=== PATIENT | female | born 1935 | race American Indian/Alaskan Native ===

== ENCOUNTER 2016-09-30 00:46 | Emergency (ER) | payer MEDICARE, MEDICAID ==
[2016-09-30 00:47] VITALS: BMI 30.7
[2016-09-30 01:10] VITALS: TEMP 97.6
--- NOTE | 2016-09-30 01:22 | ED PDOC ---
Arrival/HPI <Love Bansal - Last Filed: 09/30/16 03:55> <Buzz Grove - Last Filed: 09/30/16 04:40> - General Chief Complaint: GI Problem Time Seen by Provider: 09/30/16 00:53 - History of Present Illness Narrative History of Present Illness (Text): 09/30/16 01:18 81 y/o non-verbal F BIBA from residential for evaluation of abd distension. Pt has PEG tube and indwelling ho catheter. Pt given MoM at residential. 1BM upon arrival in ED. 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 - HEENT Hx HEENT Disorder: No (g tube) Hx Difficulty Chewing: Yes - Renal Hx Renal Disorder: No - Endocrine/Metabolic Hx Diabetes Mellitus Type 2: Yes - Hematological/Oncological Hx Blood Transfusions: (UNKNOWN) - Integumentary Hx Dermatological Disorder: No Other/Comment: both heels and feet dry skin, tongue coated - Musculoskeletal/Rheumatological Hx Musculoskeletal Disorders: Yes Hx Unsteady Gait: Yes Other/Comment: bedbound - Gastrointestinal Hx Gastrointestinal Disorders: Yes (dysphagia/g tube) Hx Gastroesophageal Reflux: Yes - Genitourinary/Gynecological Hx Genitourinary Disorders: Yes (incontinent, over active bladder) Hx Incontinence: Yes Hx Urinary Tract Infection: Yes Other/Comment: +ho catheter - Psychiatric Hx Emotional Abuse: No Hx Physical Abuse: No Hx Substance Use: No - Surgical History Other/Comment: gtube placement - Anesthesia Hx Anesthesia: Yes Hx Anesthesia Reactions: No Hx Malignant Hyperthermia: No - Suicidal Assessment Feels Threatened In Home Enviroment: No <Love Bansal - Last Filed: 09/30/16 03:55> Family/Social History Family/Social History: No Known Family HX Smoking Status: Unknown If Ever Smoked Hx Alcohol Use: No Hx Substance Use: No Hx Substance Use Treatment: No <oLve Bansal - Last Filed: 09/30/16 03:55> Allergies/Home Meds <Love Bansal - Last Filed: 09/30/16 03:55> <PerfectoBuzz - Last Filed: 09/30/16 04:40> Allergies/Adverse Reactions: Allergies No Known Allergies Allergy (Verified 06/21/12 19:21) Home Medications: Home Meds Medication Instructions Recorded Confirmed Acetaminophen [Tylenol 325mg tab] 2 tab GT Q4H PRN 09/30/16 09/30/16 Albuterol/Ipratropium [Duoneb 3 1 vial IH Q6H 09/30/16 09/30/16 mg/0.5 mg (3 ml) UD] Amino Acids/Protein Hydrolys 30 ml GT DAILY 09/30/16 09/30/16 [Prosource No Carb Protein Liq] Ascorbic Acid [Vitamin C] 500 mg GT BID 09/30/16 09/30/16 Atorvastatin [Lipitor] 1 tab GT HS 09/30/16 09/30/16 Banana Flakes/Tos [Banatrol Plus 1 packet GT BID 09/30/16 09/30/16 Powder Packet] Ergocalciferol [Drisdol 50,000 50,000 iu GT Q7D 09/30/16 09/30/16 Intl Units Cap] Esomeprazole Magnesium [Nexium] 20 mg GT DAILY 09/30/16 09/30/16 Furosemide [Lasix] 1 tab GT DAILY 09/30/16 09/30/16 Insulin Aspart, Recombinant 1 unit SQ Q6H 09/30/16 09/30/16 [Novolog] Insulin Human Isophane (NPH) 15 unit SQ QID 09/30/16 09/30/16 [Novolin N] Magnesium Hydroxide [Milk Of 30 ml GT PRN PRN 09/30/16 09/30/16 Magnesia] Memantine [Namenda] 1 tab GT DAILY 09/30/16 09/30/16 Metoclopramide [Reglan] 1 tab GT Q6H 09/30/16 09/30/16 Metoprolol Tartrate [Lopressor] 1 tab GT Q6H 09/30/16 09/30/16 Multivit-Minerals/Ferrous Fum 5 ml GT DAILY 09/30/16 09/30/16 [Multivitamin Liquid] Oxybutynin [Ditropan Oral Syrup] 5 ml GT DAILY 09/30/16 09/30/16 hydrALAZINE [Apresoline] 100 mg GT TID 09/30/16 09/30/16 Review of Systems - Review of Systems Systems not reviewed;Unavailable: Dementia <Love Bansal - Last Filed: 09/30/16 03:55> Physical Exam Vital Signs Reviewed: Yes Temperature: Afebrile Blood Pressure: Hypertensive Pulse: Regular Respiratory Rate: Normal Appearance: Positive for: Non-Toxic Pain Distress: None Mental Status: Positive for: Alert and Oriented X 3 - Systems Exam Head: Present: Atraumatic, Normocephalic Pupils: Present: PERRL Conjunctiva: Present: Injected Mouth: Present: Moist Mucous Membranes Respiratory/Chest: Present: Clear to Auscultation, Good Air Exchange. No: Respiratory Distress, Accessory Muscle Use Cardiovascular: Present: Regular Rate and Rhythm, Normal S1, S2. No: Murmurs Abdomen: Present: Distention, Normal Bowel Sounds, Other (PEG; dressing c/d/i). No: Tenderness, Peritoneal Signs, Rebound, Guarding Genitourinary/Pelvic Exam: Present: Other (ho) Upper Extremity: Present: Normal Inspection Lower Extremity: Present: Normal Inspection Neurological: Present: Other (unresponsive to verbal or painful stimuli). No: GCS=15 Skin: Present: Warm, Dry, Normal Color Psychiatric: Present: Other (non-verbal). No: Alert <Love Bansal - Last Filed: 09/30/16 03:55> Medical Decision Making - Lab Interpretations I have reviewed the lab results: Yes - RAD Interpretation Optical Model Maker And Tester: ED Physician (CXR no active diease), Radiologist - EKG Interpretation Interpreted by ED Physician: Yes Type: 12 lead EKG <Love Bansal - Last Filed: 09/30/16 03:55> - Lab Interpretations I have reviewed the lab results: Yes - RAD Interpretation Optical Model Maker And Tester: ED Physician, Radiologist - EKG Interpretation Interpreted by ED Physician: Yes Type: 12 lead EKG <Buzz Grove - Last Filed: 09/30/16 04:40> ED Course and Treatment: 09/30/16 01:26 81 y/o non-verbal F w/ abd distension - CBC, CMP, Lipase - FOB - CT A/P dry - CXR - EKG 09/30/16 03:55 Pt had BM in ED. Primary agrees w/ transferring pt back to residential. (Love Bansal) Impression: Pt seen and evaluated with resident. Pt, whose past medical history includes PEG tube, hypertension, CVA, and chronic Ho catheter, presented sent from residential for abdominal distention. Pt is non-verbal and unable to provide further history. Aware and agree with HPI, clinical findings, plan, and management. Plan: -- CT Abdomen and Pelvis -- EKG -- CXR -- Labs, lipase, VBG -- Reassess and disposition Reviewed EKG, sinus tachycardia at 103 bpm. Occasional PAC. LAD. Non-specific ST /T wave changes. 09/30/16 03:[address] Campos, who is aware and agrees with plan. States pt is stable for discharge. (Buzz Grove) - Lab Interpretations Lab Results: 09/30/16 01:20 09/30/16 01:20 Lab Results 09/30/16 01:58: pO2 50, VBG pH 7.38, VBG pCO2 52.0, VBG HCO3 30.8 H, VBG Total CO2 32.4 H, VBG O2 Sat (Calc) 88.7 H, VBG Base Excess 4.8 H, VBG Potassium 3.8, Glucose 253 H, Lactate 1.3, FiO2 21.0, Sodium 139.0, Chloride 105.0, Venous Blood Potassium 3.8 09/30/16 01:20: WBC 6.0, RBC 3.52, Hgb 9.2 L, Hct 26.9 L, MCV 76.4 L, MCH 26.1, MCHC 34.2, RDW 16.3 H, Plt Count 194, MPV 10.8 09/30/16 01:20: Sodium 136, Potassium 3.7, Chloride 98, Carbon Dioxide 28, Anion Gap 14, BUN 39 H, Creatinine 1.2, Est GFR ( Amer) 52, Est GFR (Non- Af Amer) 43, Random Glucose 251 H, Calcium 8.8, Total Bilirubin 0.4, AST 18, ALT 26, Alkaline Phosphatase 95, Total Protein 7.3, Albumin 3.7, Globulin 3.6, Albumin/Globulin Ratio 1.0 L, Lipase 128 09/30/16 01:20: PT 10.8, INR 1.00, APTT 28.9 - RAD Interpretation Narrative RAD Interpretations (Text): 09/30/16 03:03 CT A/P FINDINGS: Artifact from the patient's arms. Elevation of the right hemidiaphragm. There is bibasilar atelectasis. Hyperdensity within the gallbladder either sludge or stones. No pericholecystic inflammation identified. The liver, spleen, and pancreas appear grossly normal on this non-contrast study. There is mild bilateral perinephric stranding. No hydronephrosis. No obstructing calculi.There is a non obstructing right renal calculi. A catheter with intraluminal balloon. The colon is distended with stool consistent with constipation. The distal sigmoid- rectum are dilated with stool to the point of fecal impaction and measure 8.5 cm in diameter. Ho catheter. Diastasis of the symphysis pubis is noted. Extensive vascular calcifications. IMPRESSION: impaction of the distal sigmoid - rectum. 09/30/16 03:04 CXR no active disease (Love Bansal) Radiology Orders: 09/30/16 01:13 CHEST PORTABLE [RAD] Stat 09/30/16 01:21 ABD & PELVIS W/O PO OR IV CONT [CT] Stat - EKG Interpretation EKG Interpretation (Text): 09/30/16 03:05 sinus tach, HR 103, L axis deviation (Love Bansal) - PA / WAREHOUSE SPECIALIST / Resident Statement / has reviewed & agrees with the documentation as recorded. / has examined the patient and agrees with the treatment plan. <Buzz Grove - Last Filed: 09/30/16 04:40> Disposition/Present on Arrival - Present on Arrival Any Indicators Present on Arrival: Yes History of DVT/PE: No History of Uncontrolled Diabetes: No Urinary Catheter: Yes History of Decub. Ulcer: No History Surgical Site Infection Following: None - Disposition Have Diagnosis and Disposition been Completed?: Yes Disposition Time: 03:57 <Love Bansal - Last Filed: 09/30/16 03:55> <Buzz [place] - Last Filed: 09/30/16 04:40> - Disposition Diagnosis: Abdominal distension Disposition: TRANSF TO [facility] Patient Problems: Current Active Problems Problem Status Onset Abdominal distension Acute Condition: STABLE Additional Instructions: continue MoM for constipation and abd distension
[2016-09-30 01:43] LABS: HEMATOCRIT 26.9 % (36.0-48.0); MEAN CELL VOLUME 76.4 fL (80.0-105.0); MEAN CORPUSCULAR HEMOGLOBIN 26.1 pg (25.0-35.0); MEAN CORPUSCULAR HGB CONC 34.2 g/dl (31.0-37.0); MEAN PLATELET VOLUME 10.8 fl (7.0-11.0); RED CELL DISTRIBUTION WIDTH 16.3 % (11.5-14.5)
[2016-09-30 01:51] LABS: BILIRUBIN,TOTAL 0.4 mg/dL (0.2-1.3); CALCIUM 8.8 mg/dL (8.4-10.5); POTASSIUM 3.7 mmol/L (3.6-5.0); TOTAL PROTEIN 7.3 g/dL (5.8-8.3)
[2016-09-30 01:53] LABS: PARTIAL THROMBOPLASTIN TIME 28.9 Seconds (23.7-30.8)
[2016-09-30 02:29] LABS: VENOUS BLOOD GAS BASE EXCESS 4.8 mmol/L (0.0-2.0); VENOUS BLOOD PH 7.38 (7.32-7.43)
--- NOTE | 2016-09-30 02:54 | CT ---
EXAM: CT Abdomen and Pelvis Without Intravenous Contrast CLINICAL HISTORY: 81 years old, female; Signs and symptoms; Bloating; Additional info: Distension TECHNIQUE: Axial computed tomography images of the abdomen and pelvis without intravenous contrast. This CT exam was performed using one or more of the following dose reduction techniques: automated exposure control, adjustment of the mA and/or kV according to patient size, and/or use of iterative reconstruction technique. Coronal and sagittal reformatted images were created and reviewed. EXAM DATE/TIME: 09/30/2016 1:21 AM COMPARISON: No relevant prior studies available. FINDINGS: Artifact from the patient's arms. Elevation of the right hemidiaphragm. There is bibasilar atelectasis. Hyperdensity within the gallbladder either sludge or stones. No pericholecystic inflammation identified. The liver, spleen, and pancreas appear grossly normal on this non-contrast study. There is mild bilateral perinephric stranding. No hydronephrosis. No obstructing calculi.There is a non obstructing right renal calculi. A catheter with intraluminal balloon. The colon is distended with stool consistent with constipation. The distal sigmoid- rectum are dilated with stool to the point of fecal impaction and measure 8.5 cm in diameter. Barr[place] catheter. Diastasis of the symphysis pubis is noted. Extensive vascular calcifications. IMPRESSION: impaction of the distal sigmoid - rectum.
[2016-09-30 03:41] VITALS: RESP 18
[2016-09-30 05:20] VITALS: BP 154/90; PULSE 88; O2SAT 99
--- NOTE | 2016-09-30 09:11 | RAD ---
HISTORY: Abdominal distention COMPARISON: 02/21/2014. FINDINGS: LUNGS: The lungs are clear. PLEURA: No significant pleural effusion identified, no pneumothorax apparent. CARDIOVASCULAR: The heart is normal in size. Atherosclerotic aortic arch calcifications are present. OSSEOUS STRUCTURES: No significant abnormalities. VISUALIZED UPPER ABDOMEN: Normal. OTHER FINDINGS: None. IMPRESSION: No acute findings.
--- NOTE | 2016-09-30 14:49 | CARD ---
APPROVED REPORT EKG Measurement Heart [id number] <Conclusion> Sinus tachycardia with premature supraventricular complexes Left axis deviation/LAHB PRWP V 1 - 6 STTW changes c/w ischemia
== END 2016-09-30 05:30 ==
LOC: ED 00:46
DX: R14.0 Abdominal distension (gaseous) (principal); I10 Essential (primary) hypertension; K21.9 Gastro-esophageal reflux disease without esophagitis; Z74.01 Bed confinement status; Z93.1 Gastrostomy status

== ENCOUNTER 2017-04-16 06:29 | Day surgery (SDC) | payer MEDICARE, MEDICAID ==
[2017-04-16 06:30] VITALS: BMI 29.7
[2017-04-16 07:00] VITALS: BP 161/91; PULSE 75; RESP 17; TEMP 98.6; O2SAT 100
[2017-04-16] MEDS ORDERED: Sodium Chloride 0.9% 1,000 ML IV SCH ×2 (07:30→09:15)
[2017-04-16 08:03] LABS: BASO # 0.02 K/mm3 (0.0-2.0); BASO % 0.4 % (0.0-3.0); EOS # 0.2 (0.0-0.7); EOS % 3.7 % (1.5-5.0); GRAN # 3.38 (1.4-6.5); GRAN % 62.3 % (50.0-68.0); HEMATOCRIT 29.6 % (36.0-48.0); LYMPH # 1.3 (1.2-3.4); LYMPH % 24.2 % (22.0-35.0); MEAN CELL VOLUME 78.5 fl (80.0-105.0); MEAN CORPUSCULAR HEMOGLOBIN 26.5 pg (25.0-35.0); MEAN CORPUSCULAR HGB CONC 33.8 g/dl (31.0-37.0); MEAN PLATELET VOLUME 12.1 fl (7.0-11.0); MONO # 0.5 (0.1-0.6); MONO % 9.4 % (1.0-6.0); RED CELL DISTRIBUTION WIDTH 16.7 % (11.5-14.5); WHITE BLOOD COUNT 5.4 10^3/ul (4.5-11.0)
[2017-04-16 08:14] LABS: INR 1.01 (0.93-1.08); PARTIAL THROMBOPLASTIN TIME 30.1 Seconds (25.1-36.5)
--- NOTE | 2017-04-16 08:18 | ED PDOC ---
Arrival/HPI - General Chief Complaint: GI Problem Time Seen by Provider: 04/16/17 07:21 Historian: Long Term - History of Present Illness Narrative History of Present Illness (Text): 04/16/17 08:15 Patient is an 81 yo female sent from senior living for "PEG tube replacement". Reportedly patient had PEG tube dislodged although unspecified time. Patient was scheduled for same day surgery procedure with Dr. Bliss, she was transported to ED. No reported history of change in her baseline mental status, no reported fevers , no reported vomiting or shortness of breath. Past Medical History - Past History Past History: No Previous - Infectious Disease Hx of Infectious Diseases: None - Tetanus Immunization Tetanus Immunization: Unknown - Cardiac Hx Pacemaker: No - Pulmonary Hx Pneumonia: Yes - Neurological Hx Paralysis: Yes (S/P SEVERAL STROKES) - HEENT Hx HEENT Disorder: No (g tube) Hx Difficulty Chewing: Yes - Renal Hx Renal Disorder: No - Endocrine/Metabolic Hx Diabetes Mellitus Type 2: Yes - Hematological/Oncological Hx Blood Transfusions: (UNKNOWN) - Integumentary Hx Dermatological Disorder: No Other/Comment: both heels and feet dry skin, tongue coated - Musculoskeletal/Rheumatological Hx Musculoskeletal Disorders: Yes - Gastrointestinal Hx Gastrointestinal Disorders: Yes (dysphagia/g tube) Hx Gastroesophageal Reflux: Yes - Genitourinary/Gynecological Hx Genitourinary Disorders: Yes (incontinent, over active bladder) Hx Incontinence: Yes Hx Urinary Tract Infection: Yes Other/Comment: +ho catheter - Psychiatric Hx Emotional Abuse: No Hx Physical Abuse: No Hx Substance Use: No - Surgical History Other/Comment: gtube placement - Anesthesia Hx Anesthesia Reactions: No Hx Malignant Hyperthermia: No - Suicidal Assessment Feels Threatened In Home Enviroment: No Family/Social History Family/Social History: Unknown Family HX Smoking Status: Unknown If Ever Smoked Hx Alcohol Use: No Hx Substance Use: No Hx Substance Use Treatment: No Allergies/Home Meds Allergies/Adverse Reactions: Allergies No Known Allergies Allergy (Verified 06/21/12 19:21) Home Medications: Home Meds Medication Instructions Recorded Confirmed Acetaminophen [Tylenol 325mg tab] 2 tab GT Q4H PRN 09/30/16 04/16/17 Ascorbic Acid [Vitamin C] 500 mg GT BID 09/30/16 04/16/17 Atorvastatin [Lipitor] 1 tab GT HS 09/30/16 04/16/17 Banana Flakes/Tos [Banatrol Plus 1 packet GT BID 09/30/16 04/16/17 Powder Packet] Furosemide [Lasix] 40 tab GT DAILY 09/30/16 04/16/17 Magnesium Hydroxide [Milk Of 30 ml GT PRN PRN 09/30/16 04/16/17 Magnesia] Memantine [Namenda] 1 tab GT DAILY 09/30/16 04/16/17 Multivit-Minerals/Ferrous Fum 5 ml GT DAILY 09/30/16 04/16/17 [Multivitamin Liquid] Oxybutynin [Ditropan Oral Syrup] 5 ml GT TID 09/30/16 04/16/17 hydrALAZINE [Apresoline] 100 mg GT TID 09/30/16 04/16/17 Acetylcysteine 20% [Acetylcysteine 4 ml INH Q12H 04/15/17 04/16/17 20%] Albuterol/Ipratropium [Duoneb 3 3 ml INH Q6H 04/15/17 04/16/17 mg/0.5 mg (3 ml) UD] Cranberry Xt/Multivitamin [Utymax 30 ml GT DAILY 04/15/17 04/16/17 Powder Pack] Ergocalciferol [Drisdol 50,000 50,000 units GT Q7D 04/15/17 04/16/17 Intl Units Cap] Esomeprazole Magnesium [Nexium] 20 mg GT DAILY 04/15/17 04/16/17 Insulin Aspart Prot/Insuln Asp 15 units SC Q12H 04/15/17 04/16/17 [Novolog Mix 70-30 Vial] Insulin Human Regular [Novolin R] See Protocol SC Q6H 04/15/17 04/16/17 Metoclopramide [Reglan] 5 mg GT Q6H 04/15/17 04/16/17 Metoprolol Tartrate [Lopressor] 50 mg GT Q6H 04/15/17 04/16/17 Mupirocin 2% Ointment [Bactroban 1 appl TOP DAILY 04/15/17 04/16/17 Ointment] Vitamin A/D [Vitamin A&D] 1 appl TOP Q8H 04/15/17 04/16/17 Review of Systems - Review of Systems Systems not reviewed;Unavailable: Dementia Physical Exam Vital Signs Reviewed: Yes Vital Signs Temp Pulse Resp BP Pulse Ox 04/16/17 06:32 98.6 F 75 17 161/91 H 100 Temperature: Afebrile Blood Pressure: Hypertensive Respiratory Rate: Normal Appearance: Positive for: Non-Toxic Mental Status: Positive for: Confused - Systems Exam Head: Present: Atraumatic Mouth: Present: Dry Neck: No: Meningeal Signs Respiratory/Chest: Present: Clear to Auscultation. No: Respiratory Distress Cardiovascular: Present: Regular Rate and Rhythm, Murmurs Abdomen: Present: Distention, Other (there is ho in feeding tube site, no pus or bleeding or drainage noted, no surrounding crepitus or edema). No: Tenderness Rectal: No: Gross Blood Upper Extremity: No: Cyanosis Neurological: Present: Other (at baseline as reported, no acute focal deficits reported, contractures noted) Skin: Present: Warm Psychiatric: No: Normal Insight, Normal Concentration Medical Decision Making ED Course and Treatment: 04/16/17 08:18 Patient received in ED from senior living for "PEG TUBE PLACEMENT". Patient unable to provide history due to dementia. Patient is not in respiratory distress, no pain noted, at baseline as per reports. Communicated with GI team who is expecting patient at same day surgery, patient will be taken to same day surgery for procedure with margi Driscoll as per GI. - Lab Interpretations Lab Results: 04/16/17 07:45 04/16/17 07:45 Lab Results 04/16/17 07:45: Sodium 139, Potassium 3.5 L, Chloride 96 L, Carbon Dioxide 31, Anion Gap 15, BUN 80 H, Creatinine 1.5 H, Est GFR ( Amer) 40, Est GFR ( Non-Af Amer) 33, Random Glucose 204 H, Calcium 8.9, Total Bilirubin 0.4, AST 22 , ALT 23, Alkaline Phosphatase 81, Total Protein 7.4, Albumin 3.8, Globulin 3.6 , Albumin/Globulin Ratio 1.1 04/16/17 07:45: PT 11.1, INR 1.01, APTT 30.1 04/16/17 07:45: WBC 5.4, RBC 3.77, Hgb 10.0 L, Hct 29.6 L, MCV 78.5 L, MCH 26.5 , MCHC 33.8, RDW 16.7 H, Plt Count 171, MPV 12.1 H, Gran % 62.3, Lymph % (Auto) 24.2, [place] % (Auto) 9.4 H, Eos % (Auto) 3.7, Baso % (Auto) 0.4, Gran # 3.38, Lymph # 1.3, [place] # 0.5, Eos # 0.2, Baso # 0.02 04/16/17 07:20: POC Glucose (mg/dL) 208 H - Medication Orders Current Medication Orders: Sodium Chloride (Sodium Chloride 0.9%) 1,000 mls @ 100 mls/hr IV .Q10H [facility] Last Admin: 04/16/17 07:50 Dose: 100 mls/hr eMAR Start Stop Document 04/16/17 07:50 MR (Rec: 04/16/17 07:50 MR [id number]) Intravenous Solution Start Date 04/16/17 Start Time 07:50 Sodium Chloride (Sodium Chloride 0.9%) 1,000 mls @ 100 mls/hr IV .Q10H [facility] Disposition/Present on Arrival - Present on Arrival Any Indicators Present on Arrival: Yes History of DVT/PE: No History of Uncontrolled Diabetes: No Urinary Catheter: Yes History of Decub. Ulcer: No History Surgical Site Infection Following: None - Disposition Have Diagnosis and Disposition been Completed?: Yes Diagnosis: Feeding tube dysfunction Disposition: HOSPITALIZED Disposition Time: 08:19 Patient Plan: Admission Patient Problems: Current Active Problems Problem Status Onset Feeding tube dysfunction Acute Condition: FAIR
[2017-04-16 08:26] LABS: ALB/GLOB RATIO 1.1 (1.1-1.8); BILIRUBIN,TOTAL 0.4 mg/dL (0.2-1.3); CALCIUM 8.9 mg/dL (8.4-10.5); POTASSIUM 3.5 mmol/L (3.6-5.0); TOTAL PROTEIN 7.4 g/dL (5.8-8.3)
== END 2017-04-23 15:03 ==
LOC: ED 06:29 → SDS 08:41
PROVIDERS: ATTEND Specialist
DX: K94.23 Gastrostomy malfunction (principal); Y83.3 Surgical operation with formation of external stoma as the cause of abnormal reaction of the patient, or of later complication, without mention of misadventure at the time of the procedure; E11.9 Type 2 diabetes mellitus without complications; N32.81 Overactive bladder; Z79.4 Long term (current) use of insulin; K21.9 Gastro-esophageal reflux disease without esophagitis; Z87.440 Personal history of urinary (tract) infections; R32 Unspecified urinary incontinence; F03.90 Unspecified dementia, unspecified severity, without behavioral disturbance, psychotic disturbance, mood disturbance, and anxiety; I69.369 Other paralytic syndrome following cerebral infarction affecting unspecified side
CPT/HCPCS: 80053; 82948; 85025; 85610; 85730; 99283; J7040

== ENCOUNTER 2017-04-16 08:09 | Day surgery (SDC) | payer MEDICARE, MEDICAID ==
[2017-04-15 09:40] VITALS: BMI 29.7
[2017-04-16] MEDS ORDERED: Etomidate 20 mg/10ml Inj IV ONE (08:42)
[2017-04-16 09:31] VITALS: O2SAT 100
[2017-04-16 10:25] VITALS: BP 116/57; PULSE 85; RESP 16; TEMP 97.8
== END 2017-04-16 12:45 ==
LOC: ENDO 08:09
PROVIDERS: ATTEND Specialist
DX: K94.23 Gastrostomy malfunction (principal); Y83.3 Surgical operation with formation of external stoma as the cause of abnormal reaction of the patient, or of later complication, without mention of misadventure at the time of the procedure; E11.9 Type 2 diabetes mellitus without complications; I10 Essential (primary) hypertension; R13.12 Dysphagia, oropharyngeal phase; K21.9 Gastro-esophageal reflux disease without esophagitis; Z86.73 Personal history of transient ischemic attack (TIA), and cerebral infarction without residual deficits

== ENCOUNTER 2017-11-05 15:35 | Inpatient (IN) | payer MEDICARE, MEDICAID ==
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
--- NOTE | 2017-11-05 17:29 | RAD ---
Date of service: 11/05/2017 HISTORY: anemia admission COMPARISON: Chest radiograph dated 09/30/2016. FINDINGS: LUNGS: Pulmonary vascular congestion/edema. Left basilar atelectasis. PLEURA: Small left pleural effusion. No pneumothorax apparent. CARDIOVASCULAR: Atherosclerotic aortic calcifications. Cardiomediastinal silhouette stably prominent. Heavy mitral annular calcification redemonstrated. OSSEOUS STRUCTURES: Unchanged. VISUALIZED UPPER ABDOMEN: Normal. OTHER FINDINGS: None. IMPRESSION: Pulmonary vascular congestion/ edema with small left pleural effusion and associated atelectasis.
[2017-11-05 17:45] LABS: VENOUS BLOOD GAS BASE EXCESS 2.7 mmol/L (0.0-2.0); VENOUS BLOOD GAS PO2 78 mm/Hg (30-55); VENOUS BLOOD PH 7.41 (7.32-7.43)
[2017-11-05 17:45] LABS: BASO # 0.02 K/mm3 (0.0-2.0); BASO % 0.2 % (0.0-3.0); EOS # 0.1 (0.0-0.7); EOS % 0.5 % (1.5-5.0); GRAN # 9.87 (1.4-6.5); GRAN % 81.4 % (50.0-68.0); HEMOGLOBIN 9.1 g/dL (12.0-16.0); LYMPH # 1.2 (1.2-3.4); MEAN CORPUSCULAR HEMOGLOBIN 23.6 pg (25.0-35.0); MEAN CORPUSCULAR HGB CONC 32.4 g/dl (31.0-37.0); MEAN PLATELET VOLUME 10.6 fl (7.0-11.0); MONO % 7.9 % (1.0-6.0); RBC 3.85 10^6/uL (3.5-6.1); RED CELL DISTRIBUTION WIDTH 21.5 % (11.5-14.5); WHITE BLOOD COUNT 12.1 10^3/ul (4.5-11.0)
[2017-11-05 17:56] LABS: INR 1.07 (0.93-1.08); PARTIAL THROMBOPLASTIN TIME 31.3 Seconds (25.1-36.5); PROTHROMBIN TIME 12.2 SECONDS (9.4-12.5)
[2017-11-05 19:13] LABS: URINE BILIRUBIN NEGATIVE (NEGATIVE); URINE BLOOD LARGE (NEGATIVE); URINE GLUCOSE (UA) 100 mg/dL (NEGATIVE); URINE LEUKOCYTE ESTERASE TRACE Leu/uL (NEGATIVE); URINE PROTEIN >=300 mg/dL (<30 mg/dL); URINE UROBILINOGEN 0.2 E.U./dL (<1 E.U./dL)
[2017-11-05 19:13] LABS: ALB/GLOB RATIO 0.8 (1.1-1.8); ALBUMIN 3.1 g/dL (3.0-4.8); CALCIUM 8.1 mg/dL (8.4-10.5)
[2017-11-05 19:25] LABS: URINE APPEARANCE SL CLOUDY (CLEAR); URINE COLOR YELLOW (YELLOW)
[2017-11-05 19:32] LABS: URINE BACTERIA MANY (NEG); URINE RBC TNTC /hpf (0-2); URINE WBC 25 - 30 /hpf (0-6)
--- NOTE | 2017-11-05 19:54 | CARD ---
APPROVED REPORT Date of service: 11/05/2017 EKG Measurement Heart [id number] <Conclusion> Sinus rhythm with premature supraventricular complexes Left axis deviation Right bundle branch block Abnormal ECG
--- NOTE | 2017-11-05 20:16 | ED PDOC ---
Physical Exam Vital Signs Reviewed: Yes Vital Signs Temp Pulse Resp BP Pulse Ox 11/05/17 19:39 98 H 18 171/98 H 95 11/05/17 19:16 100 H 17 168/86 H 95 11/05/17 17:49 103 H 17 139/90 96 11/05/17 15:36 98.0 F 92 H 16 141/93 H 96 Temperature: Afebrile Blood Pressure: Normal Pulse: Regular Respiratory Rate: Normal Appearance: Positive for: Well-Appearing, Non-Toxic, Comfortable Pain Distress: None Mental Status: Positive for: Alert and Oriented X 3 Finger Stick Blood Glucose: 222 Medical Decision Making ED Course and Treatment: 11/05/17 19:00 Endorsed to me by Dr. Morales. Pending labs and UA results, and later to reassess. Patient had been transferred from residential for evaluation of low hemoglobin of 7.5. There are no reports of any bleeding. 11/05/17 21:[address] Campos, who is aware and agrees with plan. Accepts pt in to his service. Pt will go to [facility] observation for UTI and dephydration. - Lab Interpretations Lab Results: 11/05/17 17:30 11/05/17 18:46 Lab Results 11/05/17 19:17: Blood Type A POSITIVE, Antibody Screen Negative, BBK History Checked Patient has bt 11/05/17 18:46: Sodium 134, Chloride 95 L, Potassium 4.2, Carbon Dioxide 26, Anion Gap 16, BUN 62 H, Creatinine 1.4 H, Est GFR ( Amer) 43, Est GFR ( Non-Af Amer) 36, Random Glucose 217 H, Calcium 8.1 L, Total Bilirubin 0.4, AST 25, ALT 13, Alkaline Phosphatase 100, Total Protein 7.0, Albumin 3.1, Globulin 3.9, Albumin/Globulin Ratio 0.8 L 11/05/17 18:35: Urine Color Yellow, Urine Appearance Sl cloudy, Urine pH 7.0, Ur Specific [place] 1.015, Urine Protein >=300 H, Urine Glucose (UA) 100 H, Urine Ketones Trace H, Urine Blood Large H, Urine Nitrate Negative, Urine Bilirubin Negative, Urine Urobilinogen 0.2, Ur Leukocyte Esterase Trace H, Urine RBC Tntc, Urine WBC 25 - 30, Ur Epithelial Cells 6 - 8, Urine Bacteria Many 11/05/17 17:38: pO2 78 H, VBG pH 7.41, VBG pCO2 44.0, VBG HCO3 27.9, VBG Total CO2 29.3 H, VBG O2 Sat (Calc) 97.4 H, VBG Base Excess 2.7 H, VBG Potassium 8.1 H *, Sodium 127.0 L, Chloride 97.0 L, Glucose 206 H, Lactate 1.1, FiO2 21.0, Venous Blood Potassium 8.1 H* 11/05/17 17:30: PT 12.2, INR 1.07, APTT 31.3 11/05/17 17:30: WBC 12.1 H D, RBC 3.85, Hgb 9.1 L, Hct 28.1 L, MCV 73.0 L D, MCH 23.6 L, MCHC 32.4, RDW 21.5 H, Plt Count 468 H, MPV 10.6, Gran % 81.4 H, Lymph % (Auto) 10.0 L, [place] % (Auto) 7.9 H, Eos % (Auto) 0.5 L, Baso % (Auto) 0.2, Gran # 9.87 H, Lymph # (Auto) 1.2, [place] # (Auto) 1.0 H, Eos # (Auto) 0.1, Baso # (Auto) 0.02 - RAD Interpretation Radiology Orders: 11/05/17 15:58 CHEST PORTABLE [RAD] Stat - Medication Orders Current Medication Orders: Ceftriaxone Sodium (Rocephin 1 Gram Ivpb) 1 gm in 100 mls @ 200 mls/hr IV ONCE STA PRN Reason: Protocol Stop: 11/05/17 21:54 Sodium Chloride (Sodium Chloride 0.9%) 1,000 mls @ 75 mls/hr IV .[id number] - Scribe Statement The provider has reviewed the documentation as recorded by the Ketty Nieves Provider Scribe Provider Scribe Attestation: All medical record entries made by the Scribe were at my direction and personally dictated by me. I have reviewed the chart and agree that the record accurately reflects my personal performance of the history, physical exam, medical decision making, and the department course for this patient. I have also personally directed, reviewed, and agree with the discharge instructions and disposition. Disposition/Present on Arrival - Present on Arrival Any Indicators Present on Arrival: Yes History of DVT/PE: No History of Uncontrolled Diabetes: No Urinary Catheter: Yes History of Decub. Ulcer: No History Surgical Site Infection Following: None - Disposition Have Diagnosis and Disposition been Completed?: Yes Diagnosis: Abnormal laboratory test, Leukocytosis, UTI (urinary tract infection), Dehydration Disposition: HOSPITALIZED Disposition Time: 21:41 Patient Problems: Current Active Problems Problem Status Onset Abnormal laboratory test Acute Leukocytosis Acute Condition: STABLE Forms: [employer] (Ukrainian)
[2017-11-05] MEDS ORDERED: cefTRIAXone 1 gm 1 GM/100 ML BAG IV STA (21:25)
[2017-11-05] MEDS: Sodium Chloride 0.9% 1,000 ML IV SCH (22:23)
[2017-11-05] MEDS ORDERED: Ergocalciferol 50,000 Intl Units Cap GT SCH (22:45)
[2017-11-05] MEDS ORDERED: Magnesium Hydroxide Susp 30 ml UD GT PRN (23:07)
[2017-11-05] MEDS ORDERED: Dextrose 50% SYRINGE Inj (50 ml) IV PRN (23:30)
[2017-11-05] MEDS ORDERED: Meropenem 500 MG in Sodium Chloride 0.9% 50 ML IVPB SCH (23:30)
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
[2017-11-06] MEDS: Metoclopramide 5 mg/5 ml Oral Sol GT SCH ×5 (00:18→23:08)
[2017-11-06] MEDS: Acetylcysteine 20% Inhal Soln (4ml) INH SCH ×4 (01:12→19:42)
[2017-11-06] MEDS: Albuterol-Ipratrop 3 mg / 0.5 (3 ml) UD IH SCH ×4 (01:12→19:42)
[2017-11-06 02:50] VITALS: BMI 29.2
[2017-11-06] MEDS ORDERED: Insulin Reg-MEDIUM-Coverage SC SCH (07:30)
[2017-11-06] MEDS ORDERED: Dextrose 50% SYRINGE Inj (50 ml) IV PRN (07:45)
[2017-11-06 08:38] LABS: BASO # 0.02 K/mm3 (0.0-2.0); BASO % 0.2 % (0.0-3.0); EOS # 0.1 (0.0-0.7); EOS % 0.8 % (1.5-5.0); GRAN # 7.73 (1.4-6.5); GRAN % 85.1 % (50.0-68.0); HEMOGLOBIN 9.4 g/dL (12.0-16.0); LYMPH # 0.7 (1.2-3.4); LYMPH % 7.3 % (22.0-35.0); MEAN CELL VOLUME 71.7 fl (80.0-105.0); MEAN CORPUSCULAR HEMOGLOBIN 26.1 pg (25.0-35.0); MEAN CORPUSCULAR HGB CONC 36.4 g/dl (31.0-37.0); MONO # 0.6 (0.1-0.6); MONO % 6.6 % (1.0-6.0); PLATELET COUNT 310 10^3/uL (120.0-450.0); RED CELL DISTRIBUTION WIDTH 18.8 % (11.5-14.5); WHITE BLOOD COUNT 9.1 10^3/ul (4.5-11.0)
[2017-11-06] MEDS: Insulin Reg-MEDIUM-Coverage SC SCH ×2 (08:47→12:49)
[2017-11-06 08:50] LABS: ALB/GLOB RATIO 0.8 (1.1-1.8); ALBUMIN 3.2 g/dL (3.0-4.8); ALT/SGPT 15 U/L (7-56); AST/SGOT 18 U/L (14-36); BLOOD UREA NITROGEN 55 mg/dL (7-21); CALCIUM 8.1 mg/dL (8.4-10.5); GFR AFRICAN-AMERICAN 52; GFR NON-AFRICAN AMERICAN 43; HDL CHOLESTEROL 39 mg/dL (29-60)
[2017-11-06 08:58] LABS: LDL CHOLESTEROL 76 mg/dL (0-129)
[2017-11-06] MEDS ORDERED: Furosemide 40 mg/5 mL Oral Soln UD PEG SCH (10:00)
[2017-11-06] MEDS ORDERED: [UNRECOGNIZED DRUG - OTHER] GT SCH (10:00)
[2017-11-06] MEDS ORDERED: MULTIVITAMIN GT SCH (10:00)
[2017-11-06] MEDS: Cefepime 0.5 GM in Sodium Chloride 0.9% 100 ML IVPB SCH (10:10)
[2017-11-06] MEDS: OXYBUTYNIN GT SCH ×3 (10:12→17:01)
[2017-11-06] MEDS: Insulin Human NPH 1 UNITS/0.01 ML SC SCH ×3 (10:16→17:13)
[2017-11-06 11:57] LABS: FREE T4 1.81 ng/dL (0.78-2.19); T4 9.5 ug/dL (5.5-11.0)
--- NOTE | 2017-11-06 12:18 | RAD ---
Date of service: 11/06/2017 HISTORY: Abdominal distention COMPARISON: No prior. FINDINGS: BOWEL: There is large amount of stool in the colon and fecal impaction in the rectum. The bowel gas pattern is nonobstructive. No intraperitoneal air BONES: Normal. OTHER FINDINGS: None. IMPRESSION: Severe constipation and fecal impaction in the rectum. No evidence for bowel obstruction.
--- NOTE | 2017-11-06 12:32 | PN ---
DATE: 11/06/2017 SUBJECTIVE: The patient was seen lying in the bed in room 567, bed 2. The patient is responsive, but aphasic. The patient does not appear to be in any distress. Overnight, nurse's notes were reviewed. PHYSICAL EXAMINATION: VITAL SIGNS: T-max is 98.8; heart rate 98, 103, 100, 96; respirations 21; blood pressure 167/60, 183/65, 184/67; O2 sat 98%. Output is 400. HEENT: Head examination normocephalic, atraumatic. HEENT examination shows pinkish pale conjunctivae, anicteric sclerae. Dry oral mucosa. No neck rigidity. CHEST: Kyphosis. LUNGS: Shows no audible rales, crackles or wheezing. CARDIOVASCULAR: S1 and S2. Regular rhythm. Positive systolic murmur, left sternal border, right second intercostal space, left second intercostal space. ABDOMEN: Has gastrostomy tube. Positive distention noted. GENITALIA: Female. Positive Barragan catheter. EXTREMITY: Shows no pitting edema. No calf tenderness. No Homans' sign. NEUROLOGICAL: The patient is responsive, aphasic. Not able to follow any verbal commands. Cranial nerves II through XII limited. Gait examination is not tested. The patient is bedridden. MUSCULOSKELETAL: Shows a body mass index of 29. DIAGNOSTICS: On 11/06/2017, WBC 9.1, hemoglobin and hematocrit 9.4 and 26, platelets 310, granulocytes 85% segs. PT/PTT is normal. Sodium 136; potassium 3.9; chloride 101; CO2 of 25; anion gap 14; BUN down to 55 from 62; creatinine 1.2, down from 1.4; GFR 52; glucose 222; calcium 8.1; phosphorus 4.6; magnesium 2.7; iron 22; TIBC 202; iron saturation 11. Cholesterol 147, LDL 76; HDL 39. Blood type A positive. IMPRESSION AND PLAN: 1. Decreasing hemoglobin and hematocrit with severe symptomatic anemia. 2. Urinary tract infection. 3. Prerenal kidney injury. 4. Insulin-requiring diabetes mellitus with hyperglycemia. 5. Tachycardia. 6. Hypertension. 7. Leukocytosis with granulocytosis. 8. Questionable systemic inflammatory response syndrome. 9. Microcytic anemia. 10. Iron-deficiency anemia. 11. Prerenal kidney injury. 12. Iron deficiency. 13. Possible urinary tract infection with proteinuria, glycosuria, microscopic hematuria, pyuria, bacteriuria. 14. Cardiomegaly. 15. Mitral annular calcification. 16. Right bundle-branch block. 17. Aphasia. 18. Feeding dysfunction with gastrostomy tube placement. 19. Possible functional quadriplegia with severe gait dysfunction and bedridden status. 20. Left axis deviation. 21. Diabetic gastroparesis. 22. Hypovitaminosis D. 23. Dyslipidemia. 24. Dementia. 25. History of cerebrovascular infarct. Plan at this time the patient is admitted to [facility]. We finally found the POLST on this patient. The patient is a DNR/DNI, which will be ordered in the [facility]. We are awaiting further diagnostic data. We have ordered an obstructive series for evaluation of abdominal distention. Awaiting further recommendation by Infectious Disease. Current medications are Mucomyst nebulizer twice a day, Drisdol 50,000 weekly, DuoNeb nebulizer every 6 hours, heparin 5000 subcu every 8, NPH 10 units at 7:00 a.m. and NPH 10 units at 5:00 p.m., regular insulin, Venofer 200 mg IV daily, Lipitor 10 mg daily, Lopressor 50 mg every 6, cefepime 500 IV every 24, Namenda 10 mg daily, oxybutynin 5 mg three times a day, Protonix 40 mg daily, Reglan 5 mg every 6 hours via the PEG, IV fluid 0.9 at 75 mL an hour, Tylenol p.r.n., ascorbic acid, Zofran 4 IV every 4 p.r.n. I have spoke to the patient's next of kin and the guardian, Michael Robledo. I have explained to him about the patient's diagnoses, treatment plan, management plan and further disposition plan. The patient will be made DNR as per the POLST. Further management as per the Infectious Disease and involvement . Dictated and electronically signed, not read. Brooks Campos MD
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
[2017-11-06] MEDS: Mupirocin 2% Ointment 15 GM TUBE TOP SCH (16:53)
[2017-11-06 18:44] LABS: FOLATE > 20.0 ng/mL
[2017-11-07] MEDS: Albuterol-Ipratrop 3 mg / 0.5 (3 ml) UD IH SCH ×4 (01:14→22:03)
[2017-11-07] MEDS: Acetylcysteine 20% Inhal Soln (4ml) INH SCH ×2 (01:15→13:08)
--- NOTE | 2017-11-07 02:46 | HP ---
ADDENDUM HISTORY OF PRESENT ILLNESS: The patient is admitted and transferred from [facility] for severely decreasing hemoglobin/hematocrit of 7. Please refer to the detailed history and physical examination done by the biomedical technician for complete details. The patient was seen and examined. Vital signs, diagnostic data, diagnostic lab and imaging studies and the consultation reviewed. IMPRESSION AND PLAN: 1. Severe symptomatic anemia. 2. Systemic inflammatory response syndrome. 3. Possible urinary tract infection. 4. Neurogenic bladder with urinary retention and indwelling Barragan catheter. 5. Hypertension. 6. Tachycardia. 7. Functional quadriplegia with bedridden status and severe deconditioning. 8. Leukocytosis with granulocytosis and thrombocytosis. 9. Normocytic anemia. 10. Insulin-requiring diabetes mellitus with hyperglycemia and hemoglobin A1c of 6.3. 11. Iron deficiency. 12. Questionable urinary tract infection with proteinuria, glycosuria, microscopic hematuria, pyuria, bacteriuria. 13. Colonic fecal retention and impaction and severe constipation. 14. Questionable left lower lobe atelectasis with pulmonary vascular congestion. 15. Small pleural effusion. 16. Mitral annular calcification and aortic calcification. 17. Right bundle-branch block with left axis deviation. 18. Prerenal kidney injury. 19. Diabetic gastroparesis. 20. Dementia. 21. Hypovitaminosis D. 22. Hyperlipidemia. 23. Sepsis. 24. Diabetic ketoacidosis. 25. Myocardial infarction. 26. Thrombocytopenia. 27. Aphasia. 28. Multiple cerebral infarct. 29. Severe gait dysfunction and bedridden status with functional quadriplegia. 30. Neurogenic bladder with indwelling Barragan catheter. 31. Feeding dysfunction with dysphagia and odynophagia with gastrostomy tube placement. 32. Questionable cystitis with urinary bladder wall thickening. 33. 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 34. Staphylococcus hemolyticus coagulase-negative bacteremia sepsis. 35. Proteus mirabilis urinary tract infection and Proteus mirabilis and Enterococcus faecalis sacral decubitus ulceration. 36. History of paroxysmal atrial fibrillation, converting to normal sinus rhythm. 37. Left lower lobe aspiration pneumonia. 38. History of cerebrovascular accident with expressive and receptive aphasia and oropharyngeal dysphagia. 39. Gastroesophageal reflux. 40. History of chronic constipation. 41. History of right anterior cerebral artery acute infarct involving the medial frontal lobe in 2012, history of carotid anterior cerebral artery stenosis. 42. History of moderate mitral annular calcification, history of aortic mitral valve calcification. 43. History of right anterior cerebral artery stenosis, history of right medial frontal lobe acute infarct. 44. Bilateral cerebral dysfunction. 45. Pulmonary interstitial changes. 46. History of diabetic ketoacidosis, history of hyperosmolar nonketotic state. 47. History of questionable myocardial infarction. 48. History of sepsis. 49. Deconditioning. 50. Uncontrolled insulin-requiring diabetes mellitus. 51. Left basal ganglia and left pontine old infarct. 52. Altered mental status and encephalopathy. 53. Moderate bilateral cerebral dysfunction. PLAN: At this time, the patient is to be admitted to [facility]. The patient has been ordered serial labs. Blood, urine cultures ordered. Infectious Disease consultation ordered. CURRENT MEDICATIONS: Mucomyst nebulizer 20% 4 ml every 12 hours, Bactroban cream to the affected area, hypoglycemia protocol ordered. Drisdol 50,000 units via the PEG, DuoNeb nebulizer every 6 hours, Fleet enema ordered. Heparin 5000 subcu every 8 hours ordered, basal and bolus insulin sliding scale coverage every 6 hours ordered. The patient is resumed on Lipitor 10 mg daily, Lopressor 50 every 6 hours. The patient was given Rocephin and meropenem in the emergency room. The patient is resumed on Namenda 10 mg daily, Ditropan 5 mg daily, Protonix 40 mg daily, Reglan 5 mg every 6 hours. The patient is on IV fluid 0.9 normal saline at 75 mL an hour, Tylenol p.r.n., Zofran 4 mg IV every 4 hours p.r.n. Aspiration precautions ordered. JOSELYN stockings, SCDs ordered. The patient's code status after reviewing the POLST, the patient is a DNR/DNI which has been ordered. At present, the patient's further management will be dependent upon the patient's clinical condition, hemodynamic status and as per the patient's response to therapeutic intervention, as per recommendation by all the physicians involved in the care of the patient. Please refer to the detailed history and physical examination by the biomedical technician for further details. Dictated and electronically signed, not read. Brooks Campos MD [facility] # [id number]
[2017-11-07] MEDS: Metoclopramide 5 mg/5 ml Oral Sol GT SCH ×4 (05:21→22:33)
[2017-11-07] MEDS: Insulin Reg-MEDIUM-Coverage SC SCH ×5 (06:20→18:02)
[2017-11-07 06:23] LABS: BASO # 0.02 K/mm3 (0.0-2.0); BASO % 0.2 % (0.0-3.0); EOS % 0.4 % (1.5-5.0); GRAN # 9.41 (1.4-6.5); GRAN % 87.6 % (50.0-68.0); HEMOGLOBIN 7.7 g/dL (12.0-16.0); LYMPH # 0.7 (1.2-3.4); LYMPH % 6.4 % (22.0-35.0); MEAN CELL VOLUME 72.2 fl (80.0-105.0); MEAN CORPUSCULAR HEMOGLOBIN 23.8 pg (25.0-35.0); MEAN CORPUSCULAR HGB CONC 32.9 g/dl (31.0-37.0); MEAN PLATELET VOLUME 9.6 fl (7.0-11.0); MONO # 0.6 (0.1-0.6); MONO % 5.4 % (1.0-6.0); RBC 3.24 10^6/uL (3.5-6.1); RED CELL DISTRIBUTION WIDTH 18.9 % (11.5-14.5); WHITE BLOOD COUNT 10.7 10^3/ul (4.5-11.0)
[2017-11-07] MEDS: Sodium Chloride 0.9% 1,000 ML IV SCH (06:54)
[2017-11-07] MEDS: Magnesium Citrate Oral SOL (300 ml) PEG ONE ×2 (06:56→08:34)
[2017-11-07 07:01] LABS: ALB/GLOB RATIO 0.8 (1.1-1.8); ALBUMIN 2.7 g/dL (3.0-4.8); CALCIUM 7.6 mg/dL (8.4-10.5)
[2017-11-07] MEDS: Insulin Human NPH 1 UNITS/0.01 ML SC SCH ×3 (08:46→18:02)
[2017-11-07] MEDS: Mupirocin 2% Ointment 15 GM TUBE TOP SCH (09:25)
[2017-11-07] MEDS: Cefepime 0.5 GM in Sodium Chloride 0.9% 100 ML IVPB SCH (09:26)
[2017-11-07] MEDS: OXYBUTYNIN GT SCH ×3 (09:27→18:04)
[2017-11-07 09:48] LABS: HEMOGLOBIN 8.6 g/dL (12.0-16.0)
--- NOTE | 2017-11-07 10:31 | CP.PCM.PN ---
Subjective - Date & Time of Evaluation Date of Evaluation: 11/07/17 Time of Evaluation: 10:14 - Subjective Subjective: Hilda Clemente, PGY2, Medicine Progress note for Dr Campos: Patient seen and examined at bedside. No acute events noted. No overt signs of bleeding. Patient remains aphasic, at baseline. ROS unobtainable as patient is aphasic at baseline. Objective - Vital Signs/Intake and Output Vital Signs (last 24 hours): Temp Pulse Resp BP Pulse Ox 98.4 F 100 H 22 156/64 H 93 L 11/07/17 06:00 11/07/17 06:00 11/07/17 06:00 11/07/17 10:01 11/07/17 06:00 Intake and Output: 11/07/17 11/07/17 06:59 18:59 Intake Total 3440 Output Total 250 Balance 3190 - Medications Medications: Current Medications Acetaminophen (Tylenol 650 Mg Supp) 650 mg RC Q6H PRN PRN Reason: TEMP>=99.5F Acetylcysteine (Acetylcysteine 20%) 4 ml INH Q12H TI Last Admin: 11/07/17 01:15 Dose: Not Given Albuterol/Ipratropium (Duoneb 3 Mg/0.5 Mg (3 Ml) Ud) 3 ml IH [id number] TI Last Admin: 11/07/17 07:23 Dose: 3 ml Ascorbic Acid (Vitamin C 500 Mg Tab) 500 mg GT BID TI Last Admin: 11/07/17 09:27 Dose: 500 mg Atorvastatin Calcium (Lipitor) 10 mg GT HS TI Last Admin: 11/06/17 23:08 Dose: 10 mg Dextrose (Dextrose 50% Inj) 0 ml IV STAT PRN; Protocol PRN Reason: Hypoglycemia Protocol Dextrose (Dextrose 50% Inj) 0 ml IV STAT PRN; Protocol PRN Reason: Hypoglycemia Protocol Diphenhydramine HCl (Benadryl) 25 mg IVP Q8H TI Stop: 11/07/17 20:31 Ergocalciferol (Drisdol 50,000 Intl Units Cap) 1 cap GT Q7D TI Last Admin: 11/06/17 00:17 Dose: 1 cap Furosemide (Lasix) 20 mg IVP Q8H TI Stop: 11/07/17 20:31 Heparin Sodium (Porcine) (Heparin) 5,000 units SC Q8 TI PRN Reason: Protocol Last Admin: 11/07/17 05:19 Dose: 5,000 units Sodium Chloride (Sodium Chloride 0.9%) 1,000 mls @ 75 mls/hr IV .[id number] [facility] Last Admin: 11/07/17 06:54 Dose: 75 mls/hr Dextrose (Dextrose 5% In Water 1000 Ml) 1,000 mls @ 0 mls/hr IV .Q0M PRN; Protocol; Per Protocol PRN Reason: Hypoglycemia Protocol Insulin Human NPH (Humulin N) 10 units SC DAILY [facility] Last Admin: 11/07/17 09:29 Dose: Not Given Insulin Human NPH (Humulin N) 10 units SC DAILY@1745 [facility] Last Admin: 11/06/17 17:13 Dose: 10 units Insulin Human Regular (Humulin R Med) 0 units SC Q6 [facility] PRN Reason: Protocol Last Admin: 11/07/17 08:48 Dose: 5 units Memantine (Namenda) 10 mg GT DAILY [facility] Last Admin: 11/07/17 09:25 Dose: 10 mg Metoclopramide HCl (Reglan) 5 mg GT Q6H [facility] Last Admin: 11/07/17 05:21 Dose: 5 mg Metoprolol Tartrate (Lopressor) 50 mg GT Q6H [facility] Last Admin: 11/07/17 10:01 Dose: 50 mg Mupirocin (Bactroban Ointment) 15 gm TOP DAILY [facility] Last Admin: 11/07/17 09:25 Dose: 1 applic Oxybutynin [Ditropan Oral Syrup] 5 Ml ( Home Med) 5 ml GT TID [facility] Last Admin: 11/07/17 09:27 Dose: Not Given Ondansetron HCl (Zofran Inj) 4 mg IVP Q4H PRN PRN Reason: Nausea/Vomiting Pantoprazole Sodium (Protonix Inj) 40 mg IVP DAILY [facility] Last Admin: 11/07/17 09:27 Dose: 40 mg Polyethylene Glycol (Miralax) 17 gm PEG BID [facility] - Labs Labs: 11/07/17 09:40 11/07/17 05:30 PT 12.2 SECONDS (9.4-12.5) 11/05/17 17:30 INR 1.07 (0.93-1.08) 11/05/17 17:30 APTT 31.3 Seconds (25.1-36.5) 11/05/17 17:30 - Constitutional Appears: Non-toxic, No Acute Distress, Older Than Stated Age, Chronically Ill - Head Exam Head Exam: ATRAUMATIC, NORMOCEPHALIC - Eye Exam Eye Exam: Normal appearance, PERRL. absent: Conjunctival injection, Nystagmus, Periorbital swelling, Scleral icterus Pupil Exam: PERRL. absent: Irregular, Miosis, Mydriatic - ENT Exam ENT Exam: Mucous Membranes Moist - Neck Exam Neck Exam: Full ROM - Respiratory Exam Respiratory Exam: Clear to Ausculation Bilateral, NORMAL BREATHING PATTERN. absent: Rales, Rhonchi, Respiratory Distress, Stridor - Cardiovascular Exam Cardiovascular Exam: RRR, +S1, +S2. absent: Murmur - GI/Abdominal Exam GI & Abdominal Exam: Soft, Normal Bowel Sounds. absent: Rigid, Tenderness, Organomegaly, Rebound - Extremities Exam Extremities Exam: Normal Inspection - Back Exam Back Exam: NORMAL INSPECTION - Neurological Exam Neurological Exam: Awake Additional comments: + decortication - Skin Skin Exam: Dry, Normal Color, Warm Assessment and Plan - Assessment and Plan (Free Text) Assessment: 82 year old female with PMH g-tube, several CVAs, HTN, HLD, DM, and GERD, admitted for UTI and leukocytosis. Today, patient's Hgb dropped, will transfuse 2 untis prbcs: Anemia: - Hgb 7.7 today, repeat Hgb 8.6 - microcytic in nature - s/p IV iron - will transfuse 2 units prbcs - FOBT negative - no overt signs of bleeding - monitor post transfusion Hgb UTI - leukocytosis resolved since admission - UA + for urine ketones, blood and trace leuk. esterase - Started on cefepime - ID consulted. appreciate recs. - New ho put in place on admission - blood and urine cultures NTD Aphasia - aspiration precautions - Acetylcysteine [address] for secretions - Duonebs 3ml q6 [address] - reglan - Home meds of Vit A and D ordered HTN: - Metoprolol 50 ml q6 - Furosemide 40 mg ordered - Hydralazine 100 mg TID DM - ISS medium - ACHS HLD - Atorvastatin 10 Prophylaxis - SCD's in place - Protonix 40 IVP Diet: feeding tube in place, Glucerna @ 60 ml/hr Case reviewed and plan agreed upon with Dr. Unique Campos.
--- NOTE | 2017-11-07 12:39 | CP.PCM.PN ---
Subjective - Date & Time of Evaluation Date of Evaluation: 11/06/17 Time of Evaluation: 10:55 - Subjective Subjective: No fevers, not in distress. Objective - Vital Signs/Intake and Output Vital Signs (last 24 hours): Temp Pulse Resp BP Pulse Ox 98 F 77 20 137/52 L 100 11/06/17 14:00 11/06/17 19:34 11/06/17 14:00 11/06/17 19:34 11/06/17 15:53 Intake and Output: 11/06/17 11/07/17 18:59 06:59 Intake Total 0 Output Total 200 Balance -200 - Medications Medications: Current Medications Acetaminophen (Tylenol 650 Mg Supp) 650 mg RC Q6H PRN PRN Reason: TEMP>=99.5F Acetylcysteine (Acetylcysteine 20%) 4 ml INH Q12H [facility] Last Admin: 11/06/17 19:42 Dose: 4 ml Albuterol/Ipratropium (Duoneb 3 Mg/0.5 Mg (3 Ml) Ud) 3 ml IH [id number] [facility] Last Admin: 11/06/17 19:42 Dose: 3 ml Ascorbic Acid (Vitamin C 500 Mg Tab) 500 mg GT BID [facility] Last Admin: 11/06/17 17:00 Dose: 500 mg Atorvastatin Calcium (Lipitor) 10 mg GT HS [facility] Last Admin: 11/06/17 00:17 Dose: 10 mg Dextrose (Dextrose 50% Inj) 0 ml IV STAT PRN; Protocol PRN Reason: Hypoglycemia Protocol Dextrose (Dextrose 50% Inj) 0 ml IV STAT PRN; Protocol PRN Reason: Hypoglycemia Protocol Ergocalciferol (Drisdol 50,000 Intl Units Cap) 1 cap GT Q7D [facility] Last Admin: 11/06/17 00:17 Dose: 1 cap Heparin Sodium (Porcine) (Heparin) 5,000 units SC Q8 TI PRN Reason: Protocol Last Admin: 11/06/17 21:53 Dose: 5,000 units Sodium Chloride (Sodium Chloride 0.9%) 1,000 mls @ 75 mls/hr IV .[id number] [facility] Last Admin: 11/05/17 22:23 Dose: 75 mls/hr Cefepime HCl 0.5 gm/ Sodium (Chloride) 100 mls @ 100 mls/hr IVPB Q24H TI PRN Reason: Protocol Last Admin: 11/06/17 10:10 Dose: 100 mls/hr Dextrose (Dextrose 5% In Water 1000 Ml) 1,000 mls @ 0 mls/hr IV .Q0M PRN; Protocol; Per Protocol PRN Reason: Hypoglycemia Protocol Insulin Human NPH (Humulin N) 10 units SC DAILY [facility] Last Admin: 11/06/17 10:16 Dose: 10 units Insulin Human NPH (Humulin N) 10 units SC DAILY@1745 [facility] Last Admin: 11/06/17 17:13 Dose: 10 units Insulin Human Regular (Humulin R Med) 0 units SC Q6 TI PRN Reason: Protocol Last Admin: 11/06/17 12:49 Dose: Not Given Memantine (Namenda) 10 mg GT DAILY [facility] Last Admin: 11/06/17 10:11 Dose: 10 mg Metoclopramide HCl (Reglan) 5 mg GT Q6H [facility] Last Admin: 11/06/17 16:51 Dose: 5 mg Metoprolol Tartrate (Lopressor) 50 mg GT Q6H [facility] Last Admin: 11/06/17 19:27 Dose: Not Given Mupirocin (Bactroban Ointment) 15 gm TOP DAILY [facility] Last Admin: 11/06/17 16:53 Dose: 1 applic Oxybutynin [Ditropan Oral Syrup] 5 Ml ( Home Med) 5 ml GT TID [facility] Last Admin: 11/06/17 17:01 Dose: Not Given Ondansetron HCl (Zofran Inj) 4 mg IVP Q4H PRN PRN Reason: Nausea/Vomiting Pantoprazole Sodium (Protonix Inj) 40 mg IVP DAILY [facility] Last Admin: 11/06/17 10:11 Dose: 40 mg - Labs Labs: PT 12.2 SECONDS (9.4-12.5) 11/05/17 17:30 INR 1.07 (0.93-1.08) 11/05/17 17:30 APTT 31.3 Seconds (25.1-36.5) 11/05/17 17:30 - Constitutional Appears: Chronically Ill - Head Exam Head Exam: NORMAL INSPECTION - Neck Exam Neck Exam: absent: Meningismus - Respiratory Exam Respiratory Exam: Decreased Breath Sounds - Cardiovascular Exam Cardiovascular Exam: +S1, +S2 - GI/Abdominal Exam GI & Abdominal Exam: Soft. absent: Tenderness Assessment and Plan - Assessment and Plan (Free Text) Plan: Assessment Systemic inflammatory response syndrome probable from acute on chronic anemia, without evidence of UTI CVA with aphasia DM S/P gastrostomy tube placement HTN dyslipidemia GERD Plan will d/c Cefepime - blood and urine cx are negative follow up anemia work up will continue to monitor clinically
[2017-11-07] MEDS: DiphenhydrAMINE 50 mg/ml Inj IVP SCH ×2 (12:47→16:52)
--- NOTE | 2017-11-07 23:33 | PN ---
DATE: 11/07/2017 SUBJECTIVE: The patient was seen in room 567, bed 2. The patient's next of kin and power of employment attorney, Michael Charles is at bedside. The patient is awake, responsive, but aphasic. Overnight nurses' notes were reviewed. The patient received Fleet enema. The patient had significant amount of bowel movement. The patient was awake, responsive. The patient as mentioned, had a large bowel movement after the Fleet enema. PHYSICAL EXAMINATION: VITAL SIGNS: T-max is 98.4-98.3; heart rate 96, 98, 80, 89, 90; blood pressure 158/72, 162/71, 145/63, 171/86, 127/47, 137/52; respiration 22, O2 sat is 98-100%. Intake/output, output is 50 mL, 200 mL and 400 mL in the last 24 hours. Intake is 3440. HEAD: Normocephalic, atraumatic. HEENT examination shows dry oral mucosa, pale conjunctivae. Anicteric sclerae. No oropharyngeal lesion. The patient is aphasic. No neck rigidity. CHEST: Kyphosis. LUNGS: Shows no crackles, rales or wheezing. CARDIOVASCULAR: S1, S2, regular rhythm. Questionable soft systolic murmur in left sternal border, right second intercostal space, left second intercostal space. ABDOMEN: Much less distended and protuberant since yesterday. Positive gastrostomy tube noted. GENITALIA: Female. Positive Barragan catheter. EXTREMITIES: Shows no pitting edema, no calf numbness, no Homans sign. NEUROLOGIC: The patient is awake, aphasic, not responsive. Lying in the bed. MUSCULOSKELETAL: Shows a body mass index of 29. DIAGNOSTICS: From 11/07/2017, WBC count is down to 10.7, hemoglobin/hematocrit dropped to 7.7/23.4 and 8.6/25.7, platelets 362. Granulocytes 87% segs. Sodium 141, potassium 3.8, chloride 104, CO2 of 23, anion gap 17, BUN 49, creatinine 1.2, GFR 52, glucose 128, 202, 244, 262, 287, 276. Calcium 7.6, phosphorus 6.1, magnesium 2.5. LFTs are normal. Albumin is 2.7. Stool occult blood negative. Microbiology urine and blood cultures all negative. The patient is typed and crossmatched. Blood type is A+. Antibody screen negative. IMPRESSION AND PLAN 1. Severe symptomatic anemia with decreasing hemoglobin/hematocrit. 2. Systemic inflammatory response syndrome with tachycardia and leukocytosis. 3. Hypertension. 4. Tachycardia. 5. Transient hypoxemia. 6. Expressive aphasia. 7. History of cerebral infarct. 8. Leukocytosis with persistent granulocytosis. 9. Microcytic anemia with decreasing hemoglobin/hematocrit 10. Acute kidney injury. 11. Prerenal kidney injury. 12. Hyperglycemia with type 1 insulin-requiring diabetes mellitus with hemoglobin A1c of 6.3. 13. Iron-deficiency anemia. 14. Hyperphosphatemia. 15. Dementia. 16. Proteinuria, glycosuria, ketonuria, microscopic hematuria, pyuria, bacteriuria 17. Severe constipation and fecal impaction in the colon and rectum. 18. Right bundle-branch and left anterior hemiblock. 19. Hypovitaminosis D. 20. Hyperlipidemia. 21. Neurogenic bladder. 22. Diabetic gastroparesis. PLAN: At this time, the patient has been ordered type and crossmatch for 2 units of PRBC. The patient has been ordered transfusion of 2 units of PRBC, each over 3 hours with premedication with Benadryl and Lasix. The patient has been ordered repeat labs for the morning. Blood transfusion consent obtained through the patient's next of kin and power of employment attorney and guardian, Michael Charles, which he consented for the blood transfusion for the patient. The patient will be continued on Mucomyst nebulizer 20% 4 ml twice a day, Bactroban cream to the affected area, Benadryl and Lasix premedications ordered prior to transfusion. The patient was given a bottle of magnesium citrate today for persistent constipation and fecal retention. The patient is on Drisdol 50,000 weekly, DuoNeb nebulizer every 6 hours, heparin 5000 subcu every 8 hours, NPH 10 units at 07:00 a.m. and NPH 10 units at 05:00 p.m. and Humulin regular medium sliding scale coverage every 6 hours. The patient received a dose of Venofer 200 mg once. The patient is on Lipitor 40 mg daily, Lopressor 50 mg every 6 hours, MiraLax 17 g twice a day, Namenda 10 mg daily, Ditropan 5 mg 3 times a day, Protonix 40 mg daily, Reglan 5 mg every 6 hours, IV fluid 0.9 normal saline at 75 mL an hour, Tylenol suppository every 6 hours p.r.n., vitamin C 500 twice a day, Zofran 4 mg IV every 4 hours p.r.n. Aspiration precautions ordered. Head of the bed at 30 degrees. Fingerstick blood sugar, out of bed, JOSELYN stockings, SCDs ordered. At present, the patient will be continued on the above therapeutic intervention. The patient's code status is DNR/DNI. The patient will be given intravenous Venofer for iron-deficiency anemia. Patient's repeat lab work will be ordered. We will await further recommendations from Infectious Disease regarding the duration of the IV antibiotic therapy. If the patient's IV antibiotics are discontinued by the Infectious Disease today or tomorrow, the patient will be considered for [facility] permitting patient's CBC and electrolytes are improved and the patient's hemoglobin has improved from today, which has been discussed at length with the patient's next of kin and guardian, Michael Charles at length and all questions concerned answered. Dictated and electronically signed, not read. Brooks Capmos MD
[2017-11-08] MEDS: Insulin Reg-MEDIUM-Coverage SC SCH ×2 (01:42→11:22)
[2017-11-08] MEDS: Albuterol-Ipratrop 3 mg / 0.5 (3 ml) UD IH SCH ×3 (02:12→13:33)
[2017-11-08] MEDS: Metoclopramide 5 mg/5 ml Oral Sol GT SCH ×2 (06:28→10:56)
[2017-11-08 06:52] LABS: BASO # 0.03 K/mm3 (0.0-2.0); BASO % 0.3 % (0.0-3.0); EOS # 0.1 (0.0-0.7); EOS % 1.4 % (1.5-5.0); GRAN # 8.16 (1.4-6.5); GRAN % 79.8 % (50.0-68.0); LYMPH # 1.3 (1.2-3.4); MEAN CELL VOLUME 74.4 fl (80.0-105.0); MEAN CORPUSCULAR HEMOGLOBIN 25.2 pg (25.0-35.0); MEAN CORPUSCULAR HGB CONC 33.8 g/dl (31.0-37.0); MEAN PLATELET VOLUME 10.2 fl (7.0-11.0); MONO # 0.6 (0.1-0.6); MONO % 5.5 % (1.0-6.0); RBC 4.37 10^6/uL (3.5-6.1); WHITE BLOOD COUNT 10.2 10^3/ul (4.5-11.0)
[2017-11-08] MEDS: Acetylcysteine 20% Inhal Soln (4ml) INH SCH ×2 (07:19→07:20)
[2017-11-08 07:24] LABS: ALB/GLOB RATIO 0.8 (1.1-1.8); ALBUMIN 3.1 g/dL (3.0-4.8); CALCIUM 7.6 mg/dL (8.4-10.5)
[2017-11-08 09:07] VITALS: RESP 20; TEMP 98.3; O2SAT 96
[2017-11-08] MEDS ORDERED: POLYETHYLENE GLYCOL 3350 17 GM/Dose PACKET PEG SCH (10:00)
[2017-11-08] MEDS: OXYBUTYNIN GT SCH (10:40)
[2017-11-08] MEDS: Insulin Human NPH 1 UNITS/0.01 ML SC SCH (10:41)
[2017-11-08] MEDS: Mupirocin 2% Ointment 15 GM TUBE TOP SCH (10:53)
[2017-11-08 11:52] LABS: GLYCOMARK(R) 4.2 mcg/mL (7.5-28.4)
[2017-11-08 12:48] VITALS: BP 156/68; PULSE 84
--- NOTE | 2017-11-08 12:53 | CP.PCM.PN ---
Subjective - Date & Time of Evaluation Date of Evaluation: 11/08/17 Time of Evaluation: 12:05 - Subjective Subjective: No fevers, not in distress, weak-looking. Objective - Vital Signs/Intake and Output Vital Signs (last 24 hours): Temp Pulse Resp BP Pulse Ox 97.9 F 99 H 18 181/60 H 98 11/07/17 22:00 11/07/17 22:26 11/07/17 22:00 11/07/17 22:26 11/07/17 22:00 Intake and Output: 11/07/17 11/08/17 18:59 06:59 Intake Total 0 Balance 0 - Medications Medications: Current Medications Acetaminophen (Tylenol 650 Mg Supp) 650 mg RC Q6H PRN PRN Reason: TEMP>=99.5F Acetylcysteine (Acetylcysteine 20%) 4 ml INH Q12H [facility] Last Admin: 11/07/17 13:08 Dose: 4 ml Albuterol/Ipratropium (Duoneb 3 Mg/0.5 Mg (3 Ml) Ud) 3 ml IH [id number] [facility] Last Admin: 11/07/17 22:03 Dose: 3 ml Ascorbic Acid (Vitamin C 500 Mg Tab) 500 mg GT BID [facility] Last Admin: 11/07/17 18:01 Dose: 500 mg Atorvastatin Calcium (Lipitor) 10 mg GT HS [facility] Last Admin: 11/07/17 22:26 Dose: 10 mg Dextrose (Dextrose 50% Inj) 0 ml IV STAT PRN; Protocol PRN Reason: Hypoglycemia Protocol Dextrose (Dextrose 50% Inj) 0 ml IV STAT PRN; Protocol PRN Reason: Hypoglycemia Protocol Ergocalciferol (Drisdol 50,000 Intl Units Cap) 1 cap GT Q7D [facility] Last Admin: 11/06/17 00:17 Dose: 1 cap Heparin Sodium (Porcine) (Heparin) 5,000 units SC Q8 TI PRN Reason: Protocol Last Admin: 11/07/17 22:27 Dose: 5,000 units Sodium Chloride (Sodium Chloride 0.9%) 1,000 mls @ 75 mls/hr IV .[id number] [facility] Last Admin: 11/07/17 06:54 Dose: 75 mls/hr Dextrose (Dextrose 5% In Water 1000 Ml) 1,000 mls @ 0 mls/hr IV .Q0M PRN; Protocol; Per Protocol PRN Reason: Hypoglycemia Protocol Iron Sucrose 200 mg/ Sodium (Chloride) 110 mls @ 110 mls/hr IVPB DAILY [facility] Stop: 11/09/17 10:59 Last Admin: 11/07/17 21:37 Dose: Not Given Insulin Human NPH (Humulin N) 10 units SC DAILY [facility] Last Admin: 11/07/17 09:29 Dose: Not Given Insulin Human NPH (Humulin N) 10 units SC DAILY@1745 [facility] Last Admin: 11/07/17 18:02 Dose: 10 units Insulin Human Regular (Humulin R Med) 0 units SC Q6 [facility] PRN Reason: Protocol Last Admin: 11/07/17 18:02 Dose: 5 units Memantine (Namenda) 10 mg GT DAILY [facility] Last Admin: 11/07/17 09:25 Dose: 10 mg Metoclopramide HCl (Reglan) 5 mg GT Q6H [facility] Last Admin: 11/07/17 22:33 Dose: 5 mg Metoprolol Tartrate (Lopressor) 50 mg GT Q6H [facility] Last Admin: 11/07/17 22:26 Dose: 50 mg Mupirocin (Bactroban Ointment) 15 gm TOP DAILY [facility] Last Admin: 11/07/17 09:25 Dose: 1 applic Oxybutynin [Ditropan Oral Syrup] 5 Ml ( Home Med) 5 ml GT TID [facility] Last Admin: 11/07/17 18:04 Dose: Not Given Ondansetron HCl (Zofran Inj) 4 mg IVP Q4H PRN PRN Reason: Nausea/Vomiting Pantoprazole Sodium (Protonix Inj) 40 mg IVP DAILY [facility] Last Admin: 11/07/17 09:27 Dose: 40 mg Polyethylene Glycol (Miralax) 17 gm PEG BID [facility] - Labs Labs: 11/07/17 09:40 11/07/17 05:30 PT 12.2 SECONDS (9.4-12.5) 11/05/17 17:30 INR 1.07 (0.93-1.08) 11/05/17 17:30 APTT 31.3 Seconds (25.1-36.5) 11/05/17 17:30 - Constitutional Appears: Chronically Ill - Head Exam Head Exam: NORMAL INSPECTION - Respiratory Exam Respiratory Exam: Decreased Breath Sounds - Cardiovascular Exam Cardiovascular Exam: +S1, +S2 - GI/Abdominal Exam GI & Abdominal Exam: Soft. absent: Tenderness Assessment and Plan - Assessment and Plan (Free Text) Plan: Assessment Systemic inflammatory response syndrome probable from acute on chronic anemia, without evidence of UTI CVA with aphasia DM S/P gastrostomy tube placement HTN dyslipidemia GERD Plan blood and urine cx are negative - continue to monitor off antibiotics since she is at risk for nosocomial infections follow up anemia work up will continue to monitor clinically
--- NOTE | 2017-11-09 05:26 | DS ---
FINAL PROGRESS NOTE AND DISCHARGE SUMMARY HISTORY OF PRESENT ILLNESS: The patient is seen lying in the bed in room 567, bed 2. Patient is awake, responsive, aphasic, does not appear to be in any distress. Patient had a Barragan catheter changed last night. Patient received 2 units of PRBC. Patient tolerated the transfusion of 2 units of PRBC. Patient was given premedication with Lasix and Benadryl. PHYSICAL EXAMINATION: VITAL SIGNS: T-max 99.1 to 97.9, heart rate is 90, blood pressure 144/71, 162/86, 181/60, 162/81, 187/82, respirations 18 to 20, O2 saturation is 98%. HEENT: Head examination shows normocephalic, atraumatic. HEENT examination shows pinkish conjunctivae, anicteric sclerae. No oropharyngeal lesion. No neck rigidity. CHEST: Kyphosis. LUNGS: Shows occasional rhonchi. CARDIOVASCULAR: S1, S2, regular rhythm. No audible murmur, gallop or rub. ABDOMEN: Soft, protuberant. Positive bowel sounds. Positive gastrostomy. GENITALIA: Female. Positive Barragan catheter. EXTREMITIES: Shows no pitting edema. No calf tenderness. No Homans' sign. NEUROLOGICAL: Patient is awake, but aphasic, noncommunicating. MUSCULOSKELETAL: Shows a body mass index of 29. Cranial nerves limited. Neuro examination limited. Gait examination could not be tested. Patient is bedridden. DIAGNOSTIC DATA: On 11/08/2017, WBC 10.2, hemoglobin and hematocrit 11 and 32.5, platelet 374, granulocytes 79% segs. Sodium 143, potassium 4, chloride 106, CO2 of 25, anion gap of 16, BUN down to 54, creatinine is 1.2. GFR is 52. Glucose is 260. Calcium 7.6, phosphorous 5, magnesium 2.3. LFTs are normal. Stool occult blood is negative. IMPRESSION AND PLAN: 1. Systemic inflammatory response syndrome. 2. Severe symptomatic anemia with decreasing hemoglobin and hematocrit. 3. Tachycardia. 4. Uncontrolled hypertension. 5. Leukocytosis with granulocytosis. 6. Microcytic anemia with decreasing hemoglobin and hematocrit. 7. Status post packed red blood cell transfusion x2. 8. Acute kidney injury. 9. Insulin-requiring diabetes mellitus with hemoglobin A1c of 6.3. 10. Hyperglycemia. 11. Hyperphosphatemia. 12. Iron deficiency. 13. Questionable urinary tract infection with proteinuria, glycosuria, microscopic hematuria, pyuria, bacteriuria. 14. Severe gait dysfunction, deconditioning and bedridden status. 15. History of cerebral infarct with aphasia. 16. Severe constipation and fecal impaction of the colon and rectum. 17. Status post packed red blood cell transfusion x2. 18. Dementia. 19. Hypovitaminosis D. 20. Hyperlipidemia. 21. Urinary incontinence. 22. Neurogenic bladder. Plan at this time; patient is to be discharged back to [facility]. Patient's current medications as of today are Mucomyst nebulizer 20% 4 mL every 12 hours, Bactroban cream to the affected area daily, clonidine started at 0.1 mg via the PEG twice a day, Drisdol 50,000 units via the PEG weekly, DuoNeb nebulizer every 6 hours, heparin 50,000 subcu every 8 hours, NPH insulin 10 units in the morning at 07:00 a.m. and 10 units NPH at 05:00 p.m., regular insulin sliding scale coverage every 6 hours, IV Venofer 200 mg IV daily, total of 3 doses, patient was given a dose of Lasix 40 IV stat prior to discharge because patient had some volume overload and fluid overload symptoms overnight. Patient is on Lipitor 10 mg daily, Lopressor 50 mg every 6 hours, MiraLax 17 g twice a day, Namenda 10 mg daily, Ditropan 5 mg 3 times a day, Protonix 40 mg daily, Reglan 5 mg via the PEG every 6 hours, Tylenol 650 mg suppository and G-tube every 6 hours, ascorbic acid 500 mg twice a day, Zofran 4 mg every 4 hours p.r.n. Patient's discharge medications as per the ambulatory orders, which are as follows, Tylenol p.o. suppository every 6 hours p.r.n., Mucomyst nebulizer 20% 4 mL every 12 hours, DuoNeb nebulizer every 6 hours, vitamin C 500 mg twice a day, Lipitor 10 mg daily, banana flakes powder one packet twice a day via the G-tube, clonidine 0.1 mg twice a day via the G-tube, cranberry multivitamin powder pack via the G-tube daily, Drisdol 50,000 units weekly, Nexium 20 mg daily, Lasix 20 mg daily, NPH 10 units subcu daily in the morning and NPH 10 units in the evening, regular insulin sliding scale coverage, Namenda 10 mg daily, Reglan 5 mg every 6 hours, Lopressor 50 mg every 6 hours, Bactroban cream to the affected area, Ditropan 5 mg 3 times a day, MiraLax 17 g twice a day, vitamin A and D to affected area three times a day. Patient is to be discharged back to [facility] under Dr. Campos's service and medications as per updated ambulatory orders. Time spent in the entire discharge process is more than 45 minutes. Dictated and electronically signed, not read. Brooks Campos MD
== END 2017-11-08 17:00 | DRG 811 ==
LOC: ED 15:35 → ERH 21:41 → 5RNO 22:33 → OBSVTOIN 11-06 20:34
PROVIDERS: ADMIT Internal Medicine; ATTEND Internal Medicine
DX: D50.9 Iron deficiency anemia, unspecified (principal); R53.2 Functional quadriplegia; N39.0 Urinary tract infection, site not specified; N17.9 Acute kidney failure, unspecified; R65.10 Systemic inflammatory response syndrome (SIRS) of non-infectious origin without acute organ dysfunction; Z93.1 Gastrostomy status; Z74.01 Bed confinement status; Z66 Do not resuscitate; Z79.899 Other long term (current) drug therapy; Z79.4 Long term (current) use of insulin; Z87.01 Personal history of pneumonia (recurrent); Z87.440 Personal history of urinary (tract) infections; R33.8 Other retention of urine; R31.29 Other microscopic hematuria; N31.9 Neuromuscular dysfunction of bladder, unspecified; N32.81 Overactive bladder; K56.41 Fecal impaction; I69.320 Aphasia following cerebral infarction; D69.6 Thrombocytopenia, unspecified; E11.43 Type 2 diabetes mellitus with diabetic autonomic (poly)neuropathy; E55.9 Vitamin D deficiency, unspecified; E78.5 Hyperlipidemia, unspecified; E83.51 Hypocalcemia; E86.0 Dehydration; E87.70 Fluid overload, unspecified; F03.90 Unspecified dementia, unspecified severity, without behavioral disturbance, psychotic disturbance, mood disturbance, and anxiety; I25.2 Old myocardial infarction; I11.9 Hypertensive heart disease without heart failure; K31.84 Gastroparesis; K21.9 Gastro-esophageal reflux disease without esophagitis; R09.02 Hypoxemia